=== PATIENT | male | born 1975 ===

== ENCOUNTER 2020-09-26 18:58 | Emergency (ER) | payer OTHER ==
[~2020-09-26] VITALS: Ht 190.5 cm; Wt 108.9 kg
== END 2020-09-27 01:00 | disposition left against medical advice (07) ==
LOC: ER 18:58
DX: S72.012A Unspecified intracapsular fracture of left femur, initial encounter for closed fracture (principal); M25.512 Pain in left shoulder; Z53.20 Procedure and treatment not carried out because of patient's decision for unspecified reasons; V19.9XXA Pedal cyclist (driver) (passenger) injured in unspecified traffic accident, initial encounter; Y92.410 Unspecified street and highway as the place of occurrence of the external cause
CPT/HCPCS: 73060; 73502; 99284-25; A9270-GY

== ENCOUNTER 2020-10-12 08:10 | Emergency (ER) | payer OTHER ==
[~2020-10-12] VITALS: Ht 190.5 cm; Wt 104.3 kg
[2020-10-12 09:15] LABS: BASOPHILS ABSOLUTE AUTO 0.06 K/mm3 (0.00-0.23); BASOPHILS PERCENT AUTO 1 % (0-2); EOSINOPHILS ABSOLUTE AUTO 0.06 K/mm3 (0.00-0.68); EOSINOPHILS PERCENT AUTO 1 % (0-6); Hemoglobin 14.6 g/dL (13.5-17.5); IMMATURE GRAN ABSOLUTE AUTO 0.05 K/mm3 (0.00-0.10); IMMATURE GRAN PERCENT AUTO 1 % (0-1); LYMPHOCYTES ABSOLUTE AUTO 1.56 K/mm3 (0.84-5.20); LYMPHOCYTES PERCENT AUTO 22 % (21-46); MONOCYTES ABSOLUTE AUTO 0.61 K/mm3 (0.16-1.47); MONOCYTES PERCENT AUTO 8 % (4-13); Mean Corpuscular HGB 30.2 pg (26.0-34.0); Mean Corpuscular HGB Conc 33.2 g/dL (31.5-36.5); Mean Corpuscular Volume 91 fL (80-100); Mean Platelet Volume 8.8 fL (9.1-12.4); NEUTROPHILS PERCENT AUTO 68 % (41-73); Platelet Count 269 K/mm3 (150-400); RDW Coefficient Variation 12.7 % (11.7-14.2); RDW Standard Deviation 42.3 fL (35.1-46.3); Red Blood Cell Count 4.83 M/mm3 (4.30-5.90); White Blood Cell Count 7.24 K/mm3 (4.00-11.30)
[2020-10-12 09:35] LABS: Alanine Aminotransfer (ALT/SGP 51 U/L (12-78); Albumin, Blood 3.6 g/dL (3.4-5.0); Albumin/Globulin Ratio 0.9 (0.8-1.8); Alk Phos 98 U/L (50-136); Anion Gap 4 mmol/L (6-16); Aspartate Aminotrans (AST/SGOT 39 U/L (12-37); Bilirubin, Total 0.5 mg/dL (0.1-1.0); Blood Urea Nitrogen 18 mg/dL (8-24); Bun/Creatinine Ratio 23.1 (12.0-20.0); CO2, Blood 27 mmol/L (21-32); Calcium, Blood 8.7 mg/dL (8.5-10.1); Chloride, Blood 110 mmol/L (98-108); Creatinine, Blood 0.78 mg/dL (0.60-1.20); Globulin, Blood 3.8 g/dL (2.2-4.0); Glomerular Filtration Rate >60 (60-); Glucose, Blood 106 mg/dL (70-99); Potassium, Blood 3.9 mmol/L (3.5-5.5); Sodium, Blood 141 mmol/L (136-145); Total Protein, Blood 7.4 g/dL (6.4-8.2)
[2020-10-12 10:31] LABS: Influenza A, PCR Negative (NEGATIVE); Influenza B, PCR Negative (NEGATIVE); Resp Syncytial Virus, PCR Negative (NEGATIVE); SARS-Cov-2 (COVID-19) PCR, MMC Negative (NEGATIVE)
[2020-10-12] MEDS ORDERED: IBU800 MG PO (12:27)
== END 2020-10-12 13:23 | disposition home or self-care (01) ==
LOC: ER 08:10
PROVIDERS: Physician Assistant
DX: M16.11 Unilateral primary osteoarthritis, right hip (principal); F17.200 Nicotine dependence, unspecified, uncomplicated; Z87.81 Personal history of (healed) traumatic fracture; Z20.828 Contact with and (suspected) exposure to other viral communicable diseases
CPT/HCPCS: 0241U; 36415; 71045; 73502; 73700; 80053; 85025; 93005; 93010; 99285-25